=== PATIENT | male | born 1975 | race Caucasian/White ===

== ENCOUNTER 2021-06-20 11:43 | Emergency (ER) | payer SELFPAY ==
[2021-06-20] VITALS (9 sets, daily range): BP systolic 118–162; BP diastolic 74–100; PULSE 75–107; RESP 15–34; TEMP 36.3–36.5; O2SAT 97–100; BMI 21.7
--- NOTE | 2021-06-20 12:37 | W.ED.ABDPA2 ---
Documented by User: GT Dash 06/21/21 07:09 HPI - Abdominal Pain General: Chief Complaint: Abdominal Pain Stated Complaint: SEVERE ABD PAIN Time Seen by Provider: 06/20/21 11:58 Source: patient and EMS Mode of arrival: EMS Limitations: no limitations History of Present Illness: HPI narrative: Patient is a 46-year-old male who presents to ED today with complaint of abdominal pain, nausea, vomiting, body aches, and generally feeling unwell. Patient tells me he thinks he is withdrawing from methadone. Patient tells me he was getting methadone from a clinic in [place]. He states 2 to 3 days ago he decided to stop going to the clinic thinking that he could do without it. Patient tells me symptoms started following this. Patient does report occasional alcohol use-never had withdrawal symptoms. Denies drug use. He has not had any bloody or bilious vomit. He is not complaining of bloody or black stools. No fevers. No urinary complaints. MD elicited complaint: abdominal pain Onset (ago): day(s) Pain Consistency: constant Location: Diffuse Quality: cramping Associated Symptoms: Reports chills, nausea and vomiting; Denies change in bowel habits, diarrhea, dysuria, fever(s), heartburn, hematochezia, hematuria, hematemesis, melena and syncope Review of Systems Const: Reports: chills and body aches; Denies: fever(s), fatigue or malaise ENMT: Denies: throat pain, odynophagia, nasal discharge or nasal congestion Card: Denies: chest pain, palpitations, irregular heart rhythm, edema, lightheadedness, syncope or pre-syncope Resp: Denies: dyspnea GI: Reports: abdominal pain, nausea and vomiting; Denies: hematemesis, heartburn, diarrhea, change in bowel habits, hematochezia or melena : Denies: flank pain, dysuria or hematuria Musc: Denies: neck pain, back pain, extremity pain or joint pain Skin/Breast: Denies: rash Neuro: Denies: headache(s), numbness in extremities, weakness in extremities or sensory changes Physical Exam Const: COMMON NORMALS: no acute distress, patient oriented x3, no limitations and alert GENERAL APPEARANCE: cooperative ORIENTATION/CONSCIOUSNESS: Yes awake, Yes oriented to person, Yes oriented to place and Yes oriented to time HENMT: COMMON NORMALS: normocephalic and atraumatic HEAD & SCALP: normocephalic and atraumatic Resp: COMMON NORMALS: normal respiratory effort and clear to auscultation bilaterally AUSCULTATION: clear to auscultation bilaterally Cardio: COMMON NORMALS: regular rate and regular rhythm RATE: regular rate RHYTHM: regular rhythm GI: COMMON NORMALS: Normal to inspection, nondistended, normoactive bowel sounds present, Soft to palpation, No hepatosplenomegaly present and no masses INSPECTION: Yes normal to inspection PALPATION: Yes Soft to palpation, Yes Tenderness to palpation present (GI) (diffusely), No Guarding due to palpation present (GI), No Rigid due to palpation and Yes No hepatosplenomegaly present Extremity: COMMON NORMALS: normal to inspection Neuro: TESHA COMA SCALE: document GCS findings Tesha coma scale eye opening: Spontaneous Tesha coma scale verbal response: Orientated [place] coma scale motor response: Obey commands [place] coma scale total score: 15 COMMON NORMALS: patient oriented x3 SENSORIUM/ORIENTATION: Yes alert, Yes oriented to person, Yes oriented to place and Yes oriented to time Skin: COMMON NORMALS: no rashes or lesions noted GENERAL SKIN EXAM: no rashes or lesions noted Course Vital Signs: Vital signs: Vital Signs Temperature 97.3 F L 06/20/21 17:20 Pulse Rate 107 H 06/20/21 17:20 Respiratory Rate 16 06/20/21 17:20 Blood Pressure 118/74 06/20/21 17:20 Pulse Oximetry 97 06/20/21 17:20 MDM - Abdominal Pain MDM Narrative: Medical decision making narrative: Symptoms are consistent with an opiate withdrawal. COWS score is in mild range. Toxicology screen positive for opiates, amphetamines, marijuana. Patient has no changes to his mental status. No seizures. Vital signs are stable. Patient does report getting slight relief from the medications given here. He asks me repetitively for opiate pain medication. Patient was instructed to return to the methadone clinic if he feels he needs to be back on this medication. Otherwise I would recommend treating symptoms with the medications provided upon discharge. Return to ED precautions given. Lab Data: Attestation: I reviewed the patient's lab results. Labs: Lab Results 06/20/21 06/20/21 06/20/21 12:45 12:45 14:00 WBC Cancelled Corrected WBC Cancelled RBC Cancelled Hgb Cancelled Hct Cancelled MCV Cancelled MCH Cancelled MCHC Cancelled RDW Cancelled Plt Count Cancelled MPV Cancelled Gran % Cancelled Neut % (Auto) Cancelled Lymph % (Auto) Cancelled [place] % (Auto) Cancelled Eos % (Auto) Cancelled Baso % (Auto) Cancelled Neut # (Auto) Cancelled Lymph # (Auto) Cancelled [place] # (Auto) Cancelled Eos # (Auto) Cancelled Baso # (Auto) Cancelled Absolute Gran (aut o) Cancelled Nucleated RBC % (a uto) Cancelled Nucleated RBCs # Cancelled Sodium Potassium Chloride Carbon Dioxide Anion Gap BUN Creatinine GFR Calculation Glucose Calculated Osmolal ity Calcium Total Bilirubin AST ALT Alkaline Phosphata se Total Protein Albumin Globulin Lipase Urine Color Yellow (Yellow) Urine Appearance Clear (CLEAR) Urine pH 9 H (5-7) Ur Specific Gravit y 1.010 (1.005-1.030) Urine Protein Neg (Negative) Urine Glucose (UA) Norm (Normal) Urine Ketones Negative (Negative) Urine Blood Neg (Negative) Urine Nitrate Negative (Negative) Urine Bilirubin Neg (Negative) Prot Sulfosalicyli c Acd Negative (Negative) Urine Urobilinogen 1 mg/dL H mg/dL (Negative) Ur Leukocyte Emily ase Negative (Negative) Urine Opiates Scre en Positive ng/mL H ng/mL (Negative) Ur Barbiturates Sc reen Negative ng/mL ng /mL (Negative) Ur Phencyclidine S crn Negative ng/mL ng /mL (Negative) Ur Amphetamines Sc reen Positive ng/mL H ng/mL (Negative) U Benzodiazepines Scrn Negative ng/mL ng /mL (Negative) Urine Cocaine Scre en Negative ng/mL ng /mL (Negative) U Marijuana (THC) Screen Positive ng/mL H ng/mL (Negative) Ethyl Alcohol 06/20/21 06/20/21 06/20/21 14:00 14:56 14:56 WBC 7.7 10^3/uL 10^3/ uL (4.0-10.0) Corrected WBC RBC 4.99 10^6/uL 10^6 /uL (4.1-5.3) Hgb 15.4 g/dL g/dL (11.7-16.6) Hct 45.5 % % (42.0-52.0) MCV 91.2 fl fl (80-94) MCH 30.9 pg pg (28.0-34.0) MCHC 33.8 g/dL g/dL (30.0-36.0) RDW 13.1 % % (12.1-15.1) Plt Count 286 10^3/cmm 10^3 /cmm (130-400) MPV 10.4 fL fL (7.4-10.4) Gran % Neut % (Auto) 69.1 % % Lymph % (Auto) 21.2 % % [place] % (Auto) 3.8 % % Eos % (Auto) 4.7 % % Baso % (Auto) 0.7 % % Neut # (Auto) 5.29 10^3/uL 10^3 /uL (1.8-7.7) Lymph # (Auto) 1.6 10^3/uL 10^3/ uL (0.8-4.8) [place] # (Auto) 0.3 10^3/uL 10^3/ uL (0.2-0.9) Eos # (Auto) 0.4 10^3/uL 10^3/ uL (0.0-0.8) Baso # (Auto) 0.1 10^3/uL 10^3/ uL (0.0-0.1) Absolute Gran (aut o) Nucleated RBC % (a uto) 0 % % Nucleated RBCs # 0.0 /100WBC /100W BC Sodium Cancelled 131 mmol/L L mmol /L (136-145) Potassium Cancelled 4.2 mmol/L mmol/L (3.5-5.1) Chloride Cancelled 95 mmol/L L mmol/ L (98-107) Carbon Dioxide Cancelled 21 mmol/L L mmol/ L (22-29) Anion Gap Cancelled 19.2 H (5-19) BUN Cancelled 7 mg/dL mg/dL (6-20) Creatinine Cancelled 0.7 mg/dL mg/dL (0.7-1.2) GFR Calculation Cancelled 120.4 mL/min mL/m in (90-130) Glucose Cancelled 94 mg/dL mg/dL (65-115) Calculated Osmolal ity Cancelled 270 mOsm/kg L mOs m/kg (285-295) Calcium Cancelled 8.7 mg/dL mg/dL (8.5-10.5) Total Bilirubin Cancelled 0.4 mg/dL mg/dL (0.15-1.2) AST Cancelled 40 U/L U/L (0-40) ALT Cancelled 45 U/L H U/L (0-41) Alkaline Phosphata se Cancelled 104 IU/L IU/L (40-130) Total Protein Cancelled 7.8 g/dL g/dL (6.6-8.7) Albumin Cancelled 3.7 g/dL g/dL (3.5-5.2) Globulin Cancelled 4.1 g/dL g/dL (1.3-4.6) Lipase Cancelled 15 U/L U/L (13-60) Urine Color Urine Appearance Urine pH Ur Specific Gravit y Urine Protein Urine Glucose (UA) Urine Ketones Urine Blood Urine Nitrate Urine Bilirubin Prot Sulfosalicyli c Acd Urine Urobilinogen Ur Leukocyte Emily ase Urine Opiates Scre en Ur Barbiturates Sc reen Ur Phencyclidine S crn Ur Amphetamines Sc reen U Benzodiazepines Scrn Urine Cocaine Scre en U Marijuana (THC) Screen Ethyl Alcohol Cancelled < 10 mg/dL mg/dL (0-10) Discharge Plan Discharge Patient Disposition: Home Clinical Impression: Opiate withdrawal, Polysubstance abuse Condition: Stable Prescriptions: New dicyclomine 20 mg tablet 20 mg PO TID Qty: 14 RF: 0 Vistaril 50 mg capsule 50 mg PO TID PRN (Reason: anxiety) Qty: 14 RF: 0 Compazine 10 mg tablet 10 mg PO Q8H PRN (Reason: nausea and vomiting) Qty: 10 RF: 0 Discharge Orders: Discharge ED (Routine); Ordered 06/20/21 Ordered By: Thelma Barragan Patient Instructions: Polysubstance Abuse (ED), Opioid Withdrawal (ED) Coding Level of Care Code ED Business Management Intern for Chg Fwd Exam Comprehensive Documented by User: Riley Yee 06/22/21 09:10 HPI - Abdominal Pain General: Chief Complaint: Abdominal Pain Stated Complaint: SEVERE ABD PAIN Time Seen by Provider: 06/20/21 11:58 Course Vital Signs: Vital signs: Vital Signs Temperature 97.3 F L 06/20/21 17:20 Pulse Rate 107 H 06/20/21 17:20 Respiratory Rate 16 06/20/21 17:20 Blood Pressure 118/74 06/20/21 17:20 Pulse Oximetry 97 06/20/21 17:20 MDM - Abdominal Pain MDM Narrative: Medical decision making narrative: Chart reviewed and patient discussed with midlevel. Agree with assessment and plan. Lab Data: Labs: Lab Results 06/20/21 06/20/21 06/20/21 12:45 12:45 14:00 WBC Cancelled Corrected WBC Cancelled RBC Cancelled Hgb Cancelled Hct Cancelled MCV Cancelled MCH Cancelled MCHC Cancelled RDW Cancelled Plt Count Cancelled MPV Cancelled Gran % Cancelled Neut % (Auto) Cancelled Lymph % (Auto) Cancelled [place] % (Auto) Cancelled Eos % (Auto) Cancelled Baso % (Auto) Cancelled Neut # (Auto) Cancelled Lymph # (Auto) Cancelled [place] # (Auto) Cancelled Eos # (Auto) Cancelled Baso # (Auto) Cancelled Absolute Gran (aut o) Cancelled Nucleated RBC % (a uto) Cancelled Nucleated RBCs # Cancelled Sodium Potassium Chloride Carbon Dioxide Anion Gap BUN Creatinine GFR Calculation Glucose Calculated Osmolal ity Calcium Total Bilirubin AST ALT Alkaline Phosphata se Total Protein Albumin Globulin Lipase Urine Color Yellow (Yellow) Urine Appearance Clear (CLEAR) Urine pH 9 H (5-7) Ur Specific Gravit y 1.010 (1.005-1.030) Urine Protein Neg (Negative) Urine Glucose (UA) Norm (Normal) Urine Ketones Negative (Negative) Urine Blood Neg (Negative) Urine Nitrate Negative (Negative) Urine Bilirubin Neg (Negative) Prot Sulfosalicyli c Acd Negative (Negative) Urine Urobilinogen 1 mg/dL H mg/dL (Negative) Ur Leukocyte Emily ase Negative (Negative) Urine Opiates Scre en Positive ng/mL H ng/mL (Negative) Ur Barbiturates Sc reen Negative ng/mL ng /mL (Negative) Ur Phencyclidine S crn Negative ng/mL ng /mL (Negative) Ur Amphetamines Sc reen Positive ng/mL H ng/mL (Negative) U Benzodiazepines Scrn Negative ng/mL ng /mL (Negative) Urine Cocaine Scre en Negative ng/mL ng /mL (Negative) U Marijuana (THC) Screen Positive ng/mL H ng/mL (Negative) Ethyl Alcohol 06/20/21 06/20/21 06/20/21 14:00 14:56 14:56 WBC 7.7 10^3/uL 10^3/ uL (4.0-10.0) Corrected WBC RBC 4.99 10^6/uL 10^6 /uL (4.1-5.3) Hgb 15.4 g/dL g/dL (11.7-16.6) Hct 45.5 % % (42.0-52.0) MCV 91.2 fl fl (80-94) MCH 30.9 pg pg (28.0-34.0) MCHC 33.8 g/dL g/dL (30.0-36.0) RDW 13.1 % % (12.1-15.1) Plt Count 286 10^3/cmm 10^3 /cmm (130-400) MPV 10.4 fL fL (7.4-10.4) Gran % Neut % (Auto) 69.1 % % Lymph % (Auto) 21.2 % % [place] % (Auto) 3.8 % % Eos % (Auto) 4.7 % % Baso % (Auto) 0.7 % % Neut # (Auto) 5.29 10^3/uL 10^3 /uL (1.8-7.7) Lymph # (Auto) 1.6 10^3/uL 10^3/ uL (0.8-4.8) [place] # (Auto) 0.3 10^3/uL 10^3/ uL (0.2-0.9) Eos # (Auto) 0.4 10^3/uL 10^3/ uL (0.0-0.8) Baso # (Auto) 0.1 10^3/uL 10^3/ uL (0.0-0.1) Absolute Gran (aut o) Nucleated RBC % (a uto) 0 % % Nucleated RBCs # 0.0 /100WBC /100W BC Sodium Cancelled 131 mmol/L L mmol /L (136-145) Potassium Cancelled 4.2 mmol/L mmol/L (3.5-5.1) Chloride Cancelled 95 mmol/L L mmol/ L (98-107) Carbon Dioxide Cancelled 21 mmol/L L mmol/ L (22-29) Anion Gap Cancelled 19.2 H (5-19) BUN Cancelled 7 mg/dL mg/dL (6-20) Creatinine Cancelled 0.7 mg/dL mg/dL (0.7-1.2) GFR Calculation Cancelled 120.4 mL/min mL/m in (90-130) Glucose Cancelled 94 mg/dL mg/dL (65-115) Calculated Osmolal ity Cancelled 270 mOsm/kg L mOs m/kg (285-295) Calcium Cancelled 8.7 mg/dL mg/dL (8.5-10.5) Total Bilirubin Cancelled 0.4 mg/dL mg/dL (0.15-1.2) AST Cancelled 40 U/L U/L (0-40) ALT Cancelled 45 U/L H U/L (0-41) Alkaline Phosphata se Cancelled 104 IU/L IU/L (40-130) Total Protein Cancelled 7.8 g/dL g/dL (6.6-8.7) Albumin Cancelled 3.7 g/dL g/dL (3.5-5.2) Globulin Cancelled 4.1 g/dL g/dL (1.3-4.6) Lipase Cancelled 15 U/L U/L (13-60) Urine Color Urine Appearance Urine pH Ur Specific Gravit y Urine Protein Urine Glucose (UA) Urine Ketones Urine Blood Urine Nitrate Urine Bilirubin Prot Sulfosalicyli c Acd Urine Urobilinogen Ur Leukocyte Emily ase Urine Opiates Scre en Ur Barbiturates Sc reen Ur Phencyclidine S crn Ur Amphetamines Sc reen U Benzodiazepines Scrn Urine Cocaine Scre en U Marijuana (THC) Screen Ethyl Alcohol Cancelled < 10 mg/dL mg/dL (0-10) Discharge Plan Discharge Patient Disposition: Home Clinical Impression: Opiate withdrawal, Polysubstance abuse Condition: Stable Prescriptions: New dicyclomine 20 mg tablet 20 mg PO TID Qty: 14 RF: 0 Vistaril 50 mg capsule 50 mg PO TID PRN (Reason: anxiety) Qty: 14 RF: 0 Compazine 10 mg tablet 10 mg PO Q8H PRN (Reason: nausea and vomiting) Qty: 10 RF: 0 Discharge Orders: Discharge ED (Routine); Ordered 06/20/21 Ordered By: Thelma Barragan Patient Instructions: Polysubstance Abuse (ED), Opioid Withdrawal (ED) Coding Level of Care Code ED Business Management Intern for [place] Fwd Exam Comprehensive
[2021-06-20] MEDS: ondansetron 2 mg/ML SDV 2 mL 4 MG IVP (12:46)
[2021-06-20] MEDS: morphine 4 mg/mL SDV 1 mL IVP (12:49)
[2021-06-20 13:11] LABS: Add Urine Microscopic? NO; Charge for UA Resulting for Rev
[2021-06-20 13:44] LABS: Amphetamines Screen Urine Positive (Negative); Barbiturates Screen Urine Negative (Negative); Benzodiazepines Screen Urine Negative (Negative); Cocaine Screen Urine Negative (Negative); Opiate Screen Urine Positive (Negative); PCP Screen Urine Negative (Negative); THC Screen Urine Positive (Negative)
[2021-06-20 13:47] LABS: Urine Appearance Clear (CLEAR); Urine Color Yellow (Yellow)
[2021-06-20 13:48] LABS: Bilirubin Urine Neg (Negative); Blood Urine Neg (Negative); Glucose Urine UA Norm (Normal); Ketones Urine Negative (Negative); Leukocyte Esterase Urine Negative (Negative); Nitrate Urine Negative (Negative); Protein Urine Neg (Negative); Sulfosalicylic Acid Urine Negative (Negative); Urobilinogen Urine 1 mg/dL (Negative); pH Urine 9 (5-7)
[2021-06-20] MEDS: lidocaine 2% viscous 15 ML, aluminum-mag hydrox-simethicon 30 ML, sucralfate oral liq 1 GM PO (14:39)
[2021-06-20] MEDS: cloNIDine 0.1 mg Tablet PO (14:45)
[2021-06-20] MEDS: LORazepam 2 mg/mL INJ 1 mL 1 MG IVP (14:47)
[2021-06-20] MEDS: prochlorperazine 10 mg Tablet PO (14:59)
[2021-06-20] MEDS: dicyclomine 20 mg Tablet PO (15:01)
[2021-06-20 15:25] LABS: Basophils # 0.1 10^3/uL (0.0-0.1); Basophils % 0.7 %; Eosinophils # 0.4 10^3/uL (0.0-0.8); Eosinophils % 4.7 %; Hematocrit 45.5 % (42.0-52.0); Hemoglobin 15.4 g/dL (11.7-16.6); Lymphocytes # 1.6 10^3/uL (0.8-4.8); Lymphocytes % 21.2 %; Mean Corpuscular HGB Conc 33.8 g/dL (30.0-36.0); Mean Corpuscular Hemoglobin 30.9 pg (28.0-34.0); Mean Corpuscular Volume 91.2 fl (80-94); Mean Platelet Volume 10.4 fL (7.4-10.4); Monocytes # 0.3 10^3/uL (0.2-0.9); Monocytes % 3.8 %; Neutrophils # 5.29 10^3/uL (1.8-7.7); Neutrophils % 69.1 %; Nucleated Red Blood Cells % 0 %; Platelet Count 286 10^3/cmm (130-400); Red Blood Count 4.99 10^6/uL (4.1-5.3); Red Cell Distribution Width 13.1 % (12.1-15.1); White Blood Count 7.7 10^3/uL (4.0-10.0)
[2021-06-20 15:45] LABS: Alanine Aminotransferase 45 U/L (0-41); Albumin Level 3.7 g/dL (3.5-5.2); Alkaline Phosphatase 104 IU/L (40-130); Anion Gap 19.2 (5-19); Aspartate Amino Transferase 40 U/L (0-40); Blood Urea Nitrogen 7 mg/dL (6-20); Calcium 8.7 mg/dL (8.5-10.5); Carbon Dioxide 21 mmol/L (22-29); Chloride 95 mmol/L (98-107); Globulin 4.1 g/dL (1.3-4.6); Glomerular Filtration Rate 120.4 mL/min (90-130); Glucose 94 mg/dL (65-115); Lipase 15 U/L (13-60); Osmolality Calculated 270 mOsm/kg (285-295); Potassium 4.2 mmol/L (3.5-5.1); Sodium 131 mmol/L (136-145); Total Bilirubin 0.4 mg/dL (0.15-1.2); Total Protein 7.8 g/dL (6.6-8.7)
[2021-06-20 15:48] LABS: Alcohol Level < 10 mg/dL (0-10)
== END 2021-06-20 17:21 | disposition home or self-care (01) ==
PROVIDERS: Emergency Provider Physician Assistant
DX: F19.139 Other psychoactive substance abuse with withdrawal, unspecified (principal)
CPT/HCPCS: 80053; 80306; 80307; 81003; 83690; 85025; 96374; 96375; 99284; J2060; J2270; J2405; Q0164